=== PATIENT | female | born 1975 | race Two or more races ===

== ENCOUNTER 2017-01-02 05:00 | Emergency (ER) | payer MEDICAID ==
[~2017-01-02] VITALS: Ht 154.9 cm; Wt 59.9 kg
[2017-01-02 05:15] VITALS: BP 114/72
== END 2017-01-02 07:32 | disposition home or self-care (01) ==
LOC: ER 05:01
DX: N39.0 Urinary tract infection, site not specified (principal); M54.9 Dorsalgia, unspecified; M79.1 Myalgia; Z98.51 Tubal ligation status; Z90.710 Acquired absence of both cervix and uterus

== ENCOUNTER 2017-01-30 19:54 | Emergency (ER) | payer MEDICAID ==
[~2017-01-30] VITALS: Ht 154.9 cm; Wt 55.3 kg
[2017-01-30 22:16] VITALS: BP 109/78
[2017-01-30] MEDS ORDERED: TETANUS-DIPTH-ACEL PERTUSSIS 0.5ML SYRG IM ONE (22:30)
== END 2017-01-30 22:42 | disposition home or self-care (01) ==
LOC: ER 20:00
DX: S60.461A Insect bite (nonvenomous) of left index finger, initial encounter (principal); Z98.51 Tubal ligation status; Z90.49 Acquired absence of other specified parts of digestive tract; W57.XXXA Bitten or stung by nonvenomous insect and other nonvenomous arthropods, initial encounter; Y93.89 Activity, other specified; Y99.8 Other external cause status; Y92.89 Other specified places as the place of occurrence of the external cause
CPT/HCPCS: 90471; 90715

== ENCOUNTER 2018-01-15 12:11 | Emergency (ER) | payer MEDICAID ==
[~2018-01-15] VITALS: Ht 154.9 cm; Wt 61.7 kg
[2018-01-15 13:17] LABS: Urine Bacteria FEW /hpf (None Seen); Urine Blood 1+ /uL (Negative); Urine Specific Gravity 1.013 (1.001-1.035); Urine WBC 2 /hpf (0 - 5)
[2018-01-15 14:01] VITALS: BP 110/74
== END 2018-01-15 14:03 | disposition home or self-care (01) ==
LOC: ER 12:11
DX: H66.91 Otitis media, unspecified, right ear (principal); Z90.49 Acquired absence of other specified parts of digestive tract
CPT/HCPCS: 81001; 81002